=== PATIENT | female | born 1990 | race African-American/Black ===

== ENCOUNTER 2016-11-19 20:19 | Emergency (ER) | payer MEDICAID, OTHER ==
[~2016-11-19] VITALS: Ht 154.9 cm; Wt 59.0 kg
[~2016-11-19 20:19] MED LIST: ALBUTEROL SULF8.5 GM INH; BENADRYL25 M3 PO; IBUPROFEN600 M1 PO; IBUPROFEN600 MG ORAL; KENALOG 0.1% LO60 ML APPLIC; LIDOCAINE700 M1 TP; MECLIZINE HCL25 MG ORAL; NEURONTIN600 MG ORAL; NKM; NORCO 10-325 T1 EACH ORAL; PROAIR HFA8.5 GM INH; PROMETHAZINE HC25 M1 ORAL; ROBAXIN500 MG PO
[2016-11-19 20:40] VITALS: BP 97/56
[2016-11-19] MEDS ORDERED: ZITHROMAX250 MG ORAL (20:41)
[2016-11-19] MEDS ORDERED: PROMETHAZINE-D118 ML ORAL (20:41)
[2016-11-19 20:50] VITALS: BP 97/56
--- NOTE | 2016-11-19 21:09 | Emergency Room Report ---
History of Present Illness General Chief Complaint: Sore Throat Source: Patient Present Illness HPI The patient is a 26-year-old female presenting with sore throat and dry cough for the past 3 days. The patient denies any sick contacts recent travel. Pain described as a 7/10 dull ache to the throat and is worse with swallowing. Pt denies radiating pain. The patient has not used any medications. Patient denies any other symptoms including N, V, F, chills, rash Allergies: Coded Allergies: PENICILLINS (Verified Allergy, Intermediate, 09/28/12) AMOXICILLIN (Verified Allergy, Unknown, 06/25/11) Patient History Past Medical History: see triage record Pertinent Family History: none Last Menstrual Period: 10/07/16 Now: Yes - 7 weeks : 5 Para: 3 Reviewed Nursing Documentation: PMH: Agreed, PSxH: Agreed Nursing Documentation-PMH Past Medical History: No History, Except For Hx Cardiac Problems: No Hx Hypertension: No Hx Pacemaker: No Hx Asthma: Yes Hx Diabetes: No Hx Cancer: No Hx Gastrointestinal Problems: Yes Hx Dialysis: No Hx Neurological Problems: No Hx Cerebrovascular Accident: No Hx Seizures: No Review of Systems All Other Systems: negative except mentioned in HPI Physical Exam Vital Signs Date Time Temp Pulse Resp B/P Pulse Ox O2 Delivery O2 Flow Rate FiO2 11/19/16 20:24 99.7 88 16 97/56 98 Room Air Sp02 EP Interpretation: reviewed, normal General Appearance: no apparent distress, alert, GCS 15, non-toxic Head: normocephalic, atraumatic Eyes: bilateral eye PERRL, bilateral eye normal inspection ENT: hearing grossly normal, no angioedema, normal voice, uvula midline, tonsillar swelling, pharyngeal erythema Neck: full range of motion, supple/symm/no masses Respiratory: chest non-tender, lungs clear, normal breath sounds, no wheezing, speaking full sentences Cardiovascular #1: regular rate, rhythm, no edema Neurologic: alert, oriented x3, responsive, motor strength/tone normal, sensory intact, speech normal Psychiatric: judgement/insight normal, memory normal, mood/affect normal, no suicidal/homicidal ideation Skin: normal color, no rash, warm/dry, well hydrated Lymphatic: adenopathy - cervical Medical Decision Making PA Attestation Dr. Meek is my supervising physician. Patient management was discussed with my supervising physician Diagnostic Impression: Primary Impression: Pharyngitis, acute ER Course The patient is a 26-year-old female presenting with sore throat and dry cough for the past 3 days Differential diagnosis include but not limited to pharyngitis, sinusitis, AOM, bronchitis, PNA Physical exam: Vitals within normal limits. Afebrile. No apparent distress HEENT exam: There is bilateral tonsillar edema, erythema. Uvula midline. Moist mucous membranes. There is bilateral cervical lymphadenopathy. Lungs are clear to auscultation bilaterally Skin is warm and dry. No rash The patient will be discharged home with a prescription for azithromycin and is given ER precautions. Patient will followup with primary care Last Vital Signs Date Time Temp Pulse Resp B/P Pulse Ox O2 Delivery O2 Flow Rate FiO2 11/19/16 20:50 99.7 16 97/56 98 Room Air 11/19/16 20:24 88 Status: improved Disposition: HOME, SELF-CARE Condition: Improved Scripts D-Methorphan Hb/Prometh Hcl* (PROMETHAZINE-DM SYRUP*) 118 Ml Syrup 5 ML ORAL Q6H Y for For Cough, #118 ML 0 Refills Prov: NANCY GILBERT 11/19/16 Azithromycin* (ZITHROMAX*) 250 Mg Tablet 250 MG ORAL DAILY, #6 TAB 0 Refills Take two tables once daily for 1 day, then one tablet once daily for 4 days. Prov: NANCY GILBERT 11/19/16 Referrals: [employer],REFERRIN (PCP) Patient Instructions: Sore Throat Additional Instructions: I discussed my findings with the patient. All questions and concerns have been answered. Treatment and medication compliance have been addressed. I advised the patient that they need to follow up with PMD in 3-5 days. Return to ED if pain remains or worsens, cough worsens or remains, you notice blood in your sputum, you notice wheezing, you experience a fever, or if needed for any reason. Patient verbalized understanding of discharge instructions. NANCY GILBERT Nov 19, 2016 21:09
== END 2016-11-19 20:50 | disposition home or self-care (01) ==
LOC: EMR 20:39
DX: J02.9 Acute pharyngitis, unspecified (principal); J45.909 Unspecified asthma, uncomplicated; Z88.0 Allergy status to penicillin
CPT/HCPCS: 99284

== ENCOUNTER 2017-09-18 12:26 | Emergency (ER) | payer MEDICAID, OTHER ==
[~2017-09-18] VITALS: Ht 157.5 cm; Wt 63.5 kg
[~2017-09-18 12:26] MED LIST changes: +PROMETHAZINE-D118 ML ORAL; +ZITHROMAX250 MG ORAL
[2017-09-18] MEDS ORDERED: ALBUTEROL SULF8.5 GM INH (12:45)
[2017-09-18 13:04] VITALS: BP 112/65
[2017-09-18] MEDS ORDERED: AZITHROMYCIN250 MG ORAL (13:04)
--- NOTE | 2017-09-18 13:21 | Emergency Room Report ---
History of Present Illness General Chief Complaint: Sore Throat Source: Patient Present Illness HPI Patient presents with a 2-month-old child to be seen for sore throat Patient reports that 2 days ago she started feeling sore throat Denies any chest pain Denies any vomiting Denies any obvious fever or rash Patient reports that she saw a small tinge of blood with one of her coughing episode Denies any active hemorrhage Patient also complained of some mild left upper quadrant discomfort which is intermittent and was not present currently Patient reports that she has a history of gallstones Allergies: Coded Allergies: PENICILLINS (Verified Allergy, Intermediate, 09/28/12) AMOXICILLIN (Verified Allergy, Unknown, 06/25/11) Patient History Past Medical History: see triage record Pertinent Family History: none Last Menstrual Period: 09/07/17 Reviewed Nursing Documentation: PMH: Agreed, PSxH: Agreed Nursing Documentation-PMH Hx Cardiac Problems: No Hx Hypertension: No Hx Pacemaker: No Hx Asthma: Yes Hx Diabetes: No Hx Cancer: No Hx Gastrointestinal Problems: Yes Hx Dialysis: No Hx Neurological Problems: No Hx Cerebrovascular Accident: No Hx Seizures: No Review of Systems All Other Systems: negative except mentioned in HPI Physical Exam Vital Signs Date Time Temp Pulse Resp B/P (MAP) Pulse Ox O2 Delivery O2 Flow Rate FiO2 09/18/17 12:42 98.8 95 16 109/60 99 Room Air Sp02 EP Interpretation: reviewed, normal General Appearance: well appearing, no apparent distress Head: normocephalic, atraumatic Eyes: bilateral eye PERRL, bilateral eye EOMI ENT: hearing grossly normal, TMs + canals normal, uvula midline, pharyngeal erythema Neck: full range of motion, supple, no meningismus, no bony tend Respiratory: lungs clear, normal breath sounds, no rhonchi, no respiratory distress, no retraction, no accessory muscle use Cardiovascular #1: normal peripheral pulses, regular rate, rhythm, no edema, no gallop, no JVD, no murmur Gastrointestinal: normal bowel sounds, non tender, soft, no mass, no organomegaly, non-distended, no guarding, no hernia, no pulsatile mass, no rebound Genitourinary: no CVA tenderness Musculoskeletal: normal inspection Neurologic: oriented x3, responsive, operating room manager III-XII nml as tested, motor strength/ tone normal, sensory intact Psychiatric: mood/affect normal Skin: normal color, no rash, warm/dry, palpation normal Lymphatic: normal inspection, no adenopathy Medical Decision Making Diagnostic Impression: Primary Impression: pharyngitis ER Course Patient does not appear septic or toxic has findings in line with likely pharyngitis No signs of any active hemorrhage abdomen is soft Further testing was not performed in the emergency room Patient will have close outpatient followup Last Vital Signs Date Time Temp Pulse Resp B/P (MAP) Pulse Ox O2 Delivery O2 Flow Rate FiO2 09/18/17 13:04 98.8 68 19 112/65 100 Room Air Status: unchanged Disposition: HOME, SELF-CARE Condition: Stable Scripts Azithromycin* (ZITHROMAX*) 250 Mg Tablet 250 MG ORAL DAILY, #6 TAB 0 Refills Take two tablets by mouth today, then take one tablet by mouth daily for four days Prov: ALEXEI SHANNON D.O. 09/18/17 Patient Instructions: Pharyngitis, [id number] Additional Instructions: Patient is provided with the discharge instructions notified to follow up with primary doctor in the next 2-3 days otherwise return to the er with any worsening symptoms. Please note that this report is being documented using [employer] technology. This can lead to erroneous entry secondary to incorrect interpretation by the dictating instrument. ALEXEI SHANNON D.O. Sep 18, 2017 13:21
== END 2017-09-18 13:04 | disposition home or self-care (01) ==
LOC: EMR 12:55
DX: J02.9 Acute pharyngitis, unspecified (principal); Z88.0 Allergy status to penicillin
CPT/HCPCS: 99283

== ENCOUNTER 2018-03-17 13:18 | Emergency (ER) | payer MEDICAID ==
[~2018-03-17] VITALS: Ht 157.5 cm; Wt 65.8 kg
[~2018-03-17 13:18] MED LIST changes: +AZITHROMYCIN250 MG ORAL
[2018-03-17] MEDS ORDERED: CLARITIN-D 121 EAC1 ORAL (13:42)
[2018-03-17 14:13] LABS: APPEARANCE,URINE CLOUDY; BILIRUBIN, URINE NEGATIVE (NEGATIVE); COLOR,URINE PALE YELLOW; GLUCOSE, URINE (UA) NEGATIVE (NEGATIVE); KETONES,URINE NEGATIVE (NEGATIVE); LEUKOCYTE ESTERASE ,URINE 1+ (NEGATIVE); NITRITE,URINE NEGATIVE (NEGATIVE); PH,URINE 6.5 (4.5-8.0); PROTEIN,URINE NEGATIVE (NEGATIVE); UROBILINOGEN,URINE NORMAL MG/DL (0.0-1.0)
--- NOTE | 2018-03-17 14:16 | Emergency Room Report ---
History of Present Illness General Chief Complaint: General Complaint Source: Patient Present Illness HPI Patient is a 27-year-old female presented after increased nasal congestion as well as sore throat. The patient had multiple sick contacts at home. Patient denies any fever. She reports having generalized body aches as well as some increased nasal drainage. She denies any fever. She had not been having any productive cough. Allergies: Coded Allergies: PENICILLINS (Verified Allergy, Intermediate, 09/28/12) AMOXICILLIN (Verified Allergy, Unknown, 06/25/11) Patient History Last Menstrual Period: 03/17/18 Now: No : 5 Para: 45 Reviewed Nursing Documentation: PMH: Agreed; PSxH: Agreed Nursing Documentation-PMH Hx Cardiac Problems: No Hx Hypertension: No Hx Pacemaker: No Hx Asthma: Yes Hx Diabetes: No Hx Cancer: No Hx Gastrointestinal Problems: Yes - Gallstones Hx Dialysis: No Hx Neurological Problems: No Hx Cerebrovascular Accident: No Hx Seizures: No Review of Systems All Other Systems: negative except mentioned in HPI Physical Exam Vital Signs Date Time Temp Pulse Resp B/P (MAP) Pulse Ox O2 Delivery O2 Flow Rate FiO2 03/17/18 13:26 98.3 73 16 110/70 98 Room Air 98.2 Sp02 EP Interpretation: reviewed, normal General Appearance: normal inspection, well appearing, no apparent distress, alert Head: atraumatic ENT: normal ENT inspection, hearing grossly normal, normal voice Neck: normal inspection, full range of motion, supple, no bony tend Respiratory: normal inspection, lungs clear, normal breath sounds, no respiratory distress, no retraction, no wheezing Cardiovascular #1: regular rate, rhythm, no edema Gastrointestinal: normal inspection, normal bowel sounds, non tender, soft, no guarding, no hernia Genitourinary: no CVA tenderness Musculoskeletal: normal inspection, back normal, normal range of motion Neurologic: normal inspection, alert, oriented x3, responsive, shipping weigher III-XII nml as tested, speech normal Psychiatric: normal inspection, judgement/insight normal, mood/affect normal Skin: normal inspection, no rash Medical Decision Making Diagnostic Impression: Primary Impression: Upper respiratory infection ER Course Patient is a 27-year-old female who presented for increased sore throat. Differential diagnosis included but was not limited to meningitis, exudative tonsillitis, retropharyngeal abscess, epiglottitis, strep pharyngitis. Patient has a benign exam and does not appear to require any further imaging or laboratory testing at this time. The patient presented for respiratory infection. She was given prescription for medications for symptomatic treatment.The patient is advised to follow up with primary care doctor in 1-2 days. Patient is advised to return if any worsening condition or if any changes in status that are concerning. This report is dictated with [employer] cabinet and trim installer software which may occasionally lead to discrepancies related to use of this software. Labs Test 03/17/18 13:55 Last Vital Signs Date Time Temp Pulse Resp B/P (MAP) Pulse Ox O2 Delivery O2 Flow Rate FiO2 03/17/18 13:26 98.3 73 16 110/70 98 Room Air 98.2 Status: improved Disposition: HOME, SELF-CARE Condition: Stable Scripts Loratadine/Pseudoephedrine (CLARITIN-D 12 HOUR TABLET) 1 Each Tab.er.12h 1 TAB ORAL EVERY 12 HOURS, #30 TAB Prov: Sadi Rudd MD 03/17/18 Referrals: [facility],REFERRING (PCP) Patient Instructions: Upper Respiratory Infection, Adult Sadi Rudd MD Mar 17, 2018 14:16
[2018-03-17 15:21] VITALS: BP 110/70
[2018-03-17 15:25] VITALS: BP 110/70
== END 2018-03-17 14:20 | disposition home or self-care (01) ==
LOC: EMR 13:55
DX: J06.9 Acute upper respiratory infection, unspecified (principal); J45.909 Unspecified asthma, uncomplicated; Z88.0 Allergy status to penicillin
CPT/HCPCS: 81003; 81025; 99283

== ENCOUNTER 2018-09-17 15:21 | Emergency (ER) | payer MEDICAID ==
[~2018-09-17] VITALS: Ht 157.5 cm; Wt 63.5 kg
[~2018-09-17 15:21] MED LIST changes: +CLARITIN-D 121 EAC1 ORAL
[2018-09-17 15:25] VITALS: BP 120/70
[2018-09-17] MEDS ORDERED: Acetaminophen 500mg (ES) tab ORAL ONE (15:45)
--- NOTE | 2018-09-17 15:45 | Emergency Room Report ---
History of Present Illness General Chief Complaint: Sore Throat Source: Patient Present Illness HPI 28-year-old female patient presents the ER complaining of right shoulder pain and sore throat for the past few days. Patient reports pain with swallowing. Denies cough. Denies fever. Denies taking medications for relief of symptoms. Also reports right shoulder pain, denies acute injury or trauma. 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 Reports pain with movement. States not taking medication for relief of symptoms. Denies fever, chest pain, shortness of breath. Allergies: Coded Allergies: PENICILLINS (Verified Allergy, Intermediate, 09/28/12) AMOXICILLIN (Verified Allergy, Unknown, 06/25/11) Patient History Past Medical History: see triage record Last Menstrual Period: 08/10/2018 Reviewed Nursing Documentation: PMH: Agreed; PSxH: Agreed Nursing Documentation-PMH Past Medical History: No History, Except For Hx Cardiac Problems: No Hx Hypertension: No Hx Pacemaker: No Hx Asthma: Yes Hx Diabetes: No Hx Cancer: No Hx Gastrointestinal Problems: Yes - Gallstones Hx Dialysis: No Hx Neurological Problems: No Hx Cerebrovascular Accident: No Hx Seizures: No Review of Systems All Other Systems: negative except mentioned in HPI Physical Exam Vital Signs Date Time Temp Pulse Resp B/P (MAP) Pulse Ox O2 Delivery O2 Flow Rate FiO2 09/17/18 15:25 99.1 74 16 120/70 97 Room Air Sp02 EP Interpretation: reviewed, normal General Appearance: well appearing, no apparent distress, alert, GCS 15, non- toxic Head: normocephalic, atraumatic Eyes: bilateral eye normal inspection, bilateral eye PERRL ENT: hearing grossly normal, normal pharynx, no angioedema, normal voice, TMs + canals normal, uvula midline, moist mucus membranes, pharyngeal erythema, tonsillar exudate, other - Uvula midline Neck: full range of motion Respiratory: lungs clear, normal breath sounds, no rhonchi, no respiratory distress, no accessory muscle use, no wheezing, speaking full sentences Cardiovascular #1: regular rate, rhythm, no edema Cardiovascular #2: 2+ radial (R), 2+ radial (L) Gastrointestinal: non tender, soft, no mass, non-distended, no guarding, no rebound Musculoskeletal: back normal, digits/nails normal, gait/station normal, normal range of motion, non-tender, other - NVI, cap refill less than 2 seconds, negative sulcus sign, positive Neer impingement, negative Donnelly, negative empty can Neurologic: alert, oriented x3, responsive, motor strength/tone normal, sensory intact Psychiatric: mood/affect normal Skin: no rash Lymphatic: adenopathy - Cervical Medical Decision Making PA Attestation Dr. Rudd is my supervising Physician whom patient management has been discussed with. Diagnostic Impression: Primary Impression: Tonsillitis Additional Impression: Shoulder impingement ER Course Pt. presents to the ED c/o sore throat and shoulder pain. Ddx considered but are not limited to fracture, sprain, strain, contusion, dislocation, pharyngitis, laryngitis, URI, peritonsillar abscess, tonsillitis. Low suspicion for peritonsillar abscess, no neck stiffness, no hot potato voice , no stridor. No erythema, no warmth to touch, no fever, nontoxic appearing, low suspicion for septic joint. Soft compartments, no pulselessness, no pallor, no paresthesias, low suspicion for compartment syndrome at this time. Vital signs: are WNL, pt. is afebrile Ordered X-ray and pain medication. ER COURSE Provided with pain medication. Physical exam shows tonsillar exudates with lymphadenopathy, no history of cough , likely tonsillitis, will provide patient with antibiotics at discharge. Will provide patient with azithromycin due to allergy of penicillins. Take Tylenol for pain symptoms. Patient reports feeling better following administration of medication Salt water gargles An X-ray of the right shoulder shows no acute fracture or dislocation per the preliminary reading. Likely shoulder impingement, advised patient to follow-up with primary care provider and get referral for MRI imaging and to Ortho/PT. Patient instructed on RICE method: rest, ice, compression, elevation. Patient instructed on rest, ice and heat. Patient instructed to be WBAT Contact information for orthopedic urgent care provided, follow-up with urgent care if unable to followup with primary care provider and get referral to security incident response specialist. Followup with primary care provider. Discuss referral to ortho/pain management/ PT as needed. Discuss further imaging with MRI/CT as needed. DISCHARGE: At this time pt. is stable for d/c to home. Patient is resting comfortably, in no acute distress, nontoxic appearing, talking without difficulty. Will provide printed patient care instructions, and any necessary prescriptions. Patient instructed to follow with primary care provider in 3 - 5 days and to request further follow-up as needed. Care plan and follow up instructions have been discussed with the patient prior to discharge. Take medications as directed. Patient questions asked and answered. Patient reports understanding and agreement to treatment plan. ER precautions given, patient instructed to return to ER immediately for any new or worsening of symptoms. - Please note that this Emergency Department Report was dictated using [employer] secretary/transcriptionist technology software, occasionally this can lead to erroneous entry secondary to interpretation by the dictation equipment. Other X-Ray Diagnostic Results Other X-Ray Diagnostic Results : X-Ray ordered: Right shoulder # of Views/Limited Vs Complete: 3 View Indication: Pain EP Interpretation: Yes PA Xray: Interpretation reviewed, by supervising MD, and agrees with findings. Interpretation: no dislocation, no soft tissue swelling, no fractures Impression: No acute disease BETTYE Scribe Text Lev Guadalupe PA-C Last Vital Signs Date Time Temp Pulse Resp B/P (MAP) Pulse Ox O2 Delivery O2 Flow Rate FiO2 09/17/18 15:25 99.1 74 16 120/70 97 Room Air Status: improved Disposition: HOME, SELF-CARE Condition: Stable Scripts Acetaminophen* (TYLENOL EXTRA STRENGTH*) 500 Mg Tablet 500 MG ORAL Q8H PRN for Prn Headache/Temp > 101, #30 TAB 0 Refills Prov: Josh Guadalupe.AMarga 09/17/18 Methocarbamol* (ROBAXIN*) 500 Mg Tablet 500 MG PO TID, #21 TAB 0 Refills Prov: Josh Guadalupe 09/17/18 Lidocaine (Lidocaine) 1 Each Adh..patch 5 % TP DAILY for 7 Days, #7 PATCH Prov: Josh Guadalupe.AMarga 09/17/18 Azithromycin* (ZITHROMAX*) 250 Mg Tablet 250 MG ORAL DAILY, #6 TAB 0 Refills Take two tables once daily for 1 day, then one tablet once daily for 4 days. Prov: Josh Guadalupe.Sommer 09/17/18 Patient Instructions: Shoulder Pain, Tonsillitis Additional Instructions: Followup with primary care provider in 3 -5 days. Salt water gargles Take Tylenol for pain and fever symptoms Drink plenty of water. Patient instructed to follow up with primary care provider and discuss further referral to orthopedics/physical therapy/pain management as needed. If unable to followup with PCP, followup with orthopedic urgent care in 5-7 days , call to schedule appointment. Patient instructed on RICE method: rest, ice, compression, elevation. Patient instructed to WBAT. Take medications as directed. Patient questions asked and answered. ER precautions given, patient instructed to return to ER immediately for any new or worsening of symptoms. [facility] [address] [facility], [address] [email or web address] Josh Guadalupe Sep 17, 2018 15:45
[2018-09-17] MEDS ORDERED: TYLENOL EXTRA500 MG ORAL (15:47)
[2018-09-17] MEDS ORDERED: ROBAXIN500 MG PO (15:47)
[2018-09-17] MEDS ORDERED: LIDOCAINE700 M1 TP (15:47)
[2018-09-17] MEDS ORDERED: ZITHROMAX250 MG ORAL (15:47)
[2018-09-17 16:50] VITALS: BP 118/72
--- NOTE | 2018-09-18 15:43 | Diagnostic Imaging Report ---
Indication: Right shoulder pain Technique: 3 views of the right shoulder Comparison: none Findings: No acute fractures. No dislocations. The joint spaces are preserved Impression: Negative
== END 2018-09-17 16:45 | disposition home or self-care (01) ==
LOC: EMR 16:00
DX: J03.90 Acute tonsillitis, unspecified (principal); M75.41 Impingement syndrome of right shoulder; J45.909 Unspecified asthma, uncomplicated; Z88.0 Allergy status to penicillin
CPT/HCPCS: 99283

== ENCOUNTER 2019-02-23 15:56 | Emergency (ER) | payer SELFPAY ==
[~2019-02-23] VITALS: Ht 157.5 cm; Wt 64.0 kg
[~2019-02-23 15:56] MED LIST changes: +TYLENOL EXTRA500 MG ORAL
--- NOTE | 2019-02-23 16:04 | NUR ---
ED Nurse Note: pt walked in c/o sorethroat, nasal congestion, pain on respiration, and watery eyes since yesterday. no sx resp distress noted, LS=clear, airway intact, will cont monitor. pt walked in c/o right big toe pain, pt states she went to nail salon and the lady cut it too short and there has been yellow pus coming out with swelling and redness. noted mild redness and tenderness but no drainage at this time, will cont monitor.
[2019-02-23 16:09] VITALS: BP 115/67
[2019-02-23] MEDS ORDERED: CLARITIN-D 241 EACH PO (16:26)
--- NOTE | 2019-02-23 16:28 | Emergency Room Report ---
History of Present Illness General Chief Complaint: Flu Like Symptoms Source: Patient Present Illness HPI Patient is a 28-year-old female presented after increased nasal congestion as well as watery eyes and sore throat. Patient had gradual onset of symptoms in the past few days. She denies any fever. She reports having some pain to her toe as well after her recent pedicure. She denies any fever. She had not been having any cough. She denies any difficulty with breathing.Patient reported he had been taking Benadryl without any improvement. Allergies: Coded Allergies: PENICILLINS (Verified Allergy, Intermediate, 02/23/19) AMOXICILLIN (Verified Allergy, Unknown, 02/23/19) Patient History Past Medical History: see triage record Last Menstrual Period: 02/08/19 Now: No Reviewed Nursing Documentation: PMH: Agreed; PSxH: Agreed Nursing Documentation-PMH Past Medical History: No History, Except For Hx Cardiac Problems: No Hx Hypertension: No Hx Pacemaker: No Hx Asthma: Yes Hx Diabetes: No Hx Cancer: No Hx Gastrointestinal Problems: Yes - Gallstones Hx Dialysis: No Hx Neurological Problems: No Hx Cerebrovascular Accident: No Hx Seizures: No Review of Systems All Other Systems: negative except mentioned in HPI Physical Exam Vital Signs Date Time Temp Pulse Resp B/P (MAP) Pulse Ox O2 Delivery O2 Flow Rate FiO2 02/23/19 15:58 98.4 92 18 115/67 (83) 98 Room Air General Appearance: well appearing, no apparent distress, alert, GCS 15 Head: normocephalic, atraumatic ENT: hearing grossly normal, normal voice, other - nasal congestion Neck: full range of motion, supple Respiratory: no respiratory distress, speaking full sentences Cardiovascular #1: normal inspection, no edema Gastrointestinal: normal inspection Musculoskeletal: other - no soft tissue swelling to toe Neurologic: normal gait Psychiatric: mood/affect normal Skin: no rash Medical Decision Making Diagnostic Impression: Primary Impression: Allergic rhinitis ER Course . Patient presented for increased nasal congestion and watery eyes. Differential diagnosis include was not limited to allergic rhinitis, viral respiratory infection, allergic reaction among others. Patient has a benign exam and does not appear to require any further imaging or laboratory testing at this time. Patient did have a benign exam and does not appear to have any evidence of acute respiratory distress. She is given medications for symptomatic treatment. Patient advised to recheck with her primary care physician in the next few days. Patient's toe does not appear to be significantly infected and she is advised on care. Patient was to take ibuprofen for pain as needed. Last Vital Signs Date Time Temp Pulse Resp B/P (MAP) Pulse Ox O2 Delivery O2 Flow Rate FiO2 02/23/19 16:09 98.4 92 18 115/67 98 Room Air Status: improved Disposition: HOME, SELF-CARE Condition: Stable Scripts Loratadine/Pseudoephedrine (CLARITIN-D 24 HOUR TABLET) 1 Each Tab.er.24h 1 TAB PO DAILY, #20 TAB Prov: Sadi Rudd MD 02/23/19 Patient Instructions: Allergies, [id number] Additional Instructions: Follow up with your primary care physician. Sadi Rudd MD February 23, 2019 16:28
[2019-02-23] MEDS ORDERED: Oxymetazoline 0.05% Na Spray 30ml NASAL ONE (16:30)
[2019-02-23 16:34] VITALS: BP 115/67
--- NOTE | 2019-02-23 16:34 | NUR ---
ER DISCHARGE NOTE: Patient is cleared to be discharged per ERMD, pt is aox4, on room air, with stable vital signs. pt was given dc and prescription instructions, pt was able to verbalize understanding, pt id band removed without complications. pt is able to ambulate with steady gait. pt took all belongings.
== END 2019-02-23 16:34 | disposition home or self-care (01) ==
LOC: EMR 16:20
DX: J30.9 Allergic rhinitis, unspecified (principal); J45.909 Unspecified asthma, uncomplicated; Z88.0 Allergy status to penicillin
CPT/HCPCS: 99282

== ENCOUNTER 2019-03-24 20:24 | Emergency (ER) | payer MEDICAID, OTHER ==
[~2019-03-24] VITALS: Ht 157.5 cm; Wt 63.5 kg
[~2019-03-24 20:24] MED LIST changes: +CLARITIN-D 241 EACH PO
--- NOTE | 2019-03-24 20:45 | NUR ---
ED Nurse Note: PATIENT WALKED IN TO ER FROM HOME WITH C/O LEFT SIDE CHEST AREA PAIN ONLY WHEN BREATHING IN AT 8/10 SINCE AM, PT HAS HAD COUGH FOR PAST WEEK WITH PRODUCTION. AAO X4, VSS AT THIS TIME, SKIN IS DRY, INTACT, WARM TO TOUCH. PATIENT PRESENTED WITH SLIGHTLY ELEVATED T 99.8, PT'S O2 SAT 98 % ON RA, NONLABORED BREATHING NOTICED.
[2019-03-24 20:54] VITALS: BP 110/66
[2019-03-24] MEDS ORDERED: Albuterol/Ipratropium 3ml neb HHN ONE (21:00)
--- NOTE | 2019-03-24 21:12 | Emergency Room Report ---
History of Present Illness General Chief Complaint: Chest Pain Source: Patient Present Illness HPI Patient is a 28-year-old female presented after increased cough and chest discomfort. Patient prior history of asthma. She reports having similar symptoms in the past. She states that she has episodes in the past during the summer when she has more concerns with her asthma. She did not have any fever. She reports having some increased congestion as well as increased cough Allergies: Coded Allergies: PENICILLINS (Verified Allergy, Intermediate, 03/24/19) AMOXICILLIN (Verified Allergy, Unknown, 02/23/19) Patient History Past Medical History: asthma Last Menstrual Period: 03-08-2019 Now: No Reviewed Nursing Documentation: PMH: Agreed; PSxH: Agreed Nursing Documentation-PMH Hx Cardiac Problems: No Hx Hypertension: No Hx Pacemaker: No Hx Asthma: Yes Hx Diabetes: No Hx Cancer: No Hx Gastrointestinal Problems: Yes - Gallstones Hx Dialysis: No Hx Neurological Problems: No Hx Cerebrovascular Accident: No Hx Seizures: No Review of Systems All Other Systems: negative except mentioned in HPI Physical Exam Vital Signs Date Time Temp Pulse Resp B/P (MAP) Pulse Ox O2 Delivery O2 Flow Rate FiO2 03/24/19 20:32 99.3 110 18 110/66 (81) 98 Room Air General Appearance: well appearing, no apparent distress, alert, GCS 15 Head: normocephalic, atraumatic ENT: hearing grossly normal, normal voice Neck: full range of motion, supple Respiratory: no respiratory distress, speaking full sentences Cardiovascular #1: normal inspection, regular rate, rhythm, no edema Gastrointestinal: normal inspection, non tender, soft Musculoskeletal: normal inspection Neurologic: normal inspection, alert, oriented x3, responsive, incendiaries supervisor III-XII nml as tested, normal gait Psychiatric: mood/affect normal Skin: no rash Medical Decision Making Diagnostic Impression: Primary Impression: Asthma in adult ER Course Patient presented for left-sided chest discomfort. Differential diagnosis include is not limited to pneumonia, bronchitis, asthma exacerbation among others.Patient was given breathing treatment. She was noted to have chest x- ray read by radiology which showed no evidence of acute infiltrate or cardiomegaly. Patient was given prescriptions for medications for symptomatic treatment she was advised to follow-up with her primary care physician for recheck. Patient advised to return if any worsening of condition or other concerns. Last Vital Signs Date Time Temp Pulse Resp B/P (MAP) Pulse Ox O2 Delivery O2 Flow Rate FiO2 03/24/19 20:54 110 18 Room Air 03/24/19 20:54 99.7 110/66 98 Status: improved Disposition: HOME, SELF-CARE Condition: Stable Scripts Loratadine (CLARITIN) 10 Mg Capsule 10 MG ORAL DAILY, #30 CAP Prov: Sadi Rudd MD 03/24/19 Albuterol Sulfate* (ALBUTEROL SULFATE MDI*) 8.5 Gm Hfa.aer.ad 2 PUFF INH Q4H PRN for cough/wheezing, #1 EA 0 Refills Prov: Sadi Rudd MD 03/24/19 Referrals: NOT CHOSEN IPA/,REFERRING (PCP) Sadi Rudd MD Mar 24, 2019 21:12
[2019-03-24] MEDS ORDERED: CLARITIN10 M2 ORAL (21:13)
[2019-03-24] MEDS ORDERED: ALBUTEROL SULF8.5 GM INH (21:13)
[2019-03-24 21:32] VITALS: BP 110/66
--- NOTE | 2019-03-24 21:32 | NUR ---
ED Nurse Note: Pt cleared by health care Provider for discharge. DC instructions/prescription was given and explained to pt and verbalized understanding of teachings. All medical deviecs such as ID band removed. Pt is AAO x4, ambulatory and left with all personal belongings.
--- NOTE | 2019-03-24 21:39 | Diagnostic Imaging Report ---
EXAM: XR Chest, 1 View CLINICAL HISTORY: Chest pain TECHNIQUE: Frontal view of the chest. COMPARISON: CT 08/13/2016, CXR 08/15/2016 FINDINGS: Lungs: Unremarkable. No consolidation. Pleural space: Unremarkable. No pneumothorax. Heart: Unremarkable. No cardiomegaly. Mediastinum: Unremarkable. Bones/joints: No acute osseous abnormality. IMPRESSION: No acute cardiopulmonary process.
== END 2019-03-24 21:33 | disposition home or self-care (01) ==
LOC: EMR 20:46
DX: J45.909 Unspecified asthma, uncomplicated (principal); Z88.0 Allergy status to penicillin
CPT/HCPCS: 71045; 81025; 94640; 94664; 99284; J7620

== ENCOUNTER 2019-04-02 13:25 | Emergency (ER) | payer OTHER ==
[~2019-04-02] VITALS: Ht 157.5 cm; Wt 63.5 kg
[~2019-04-02 13:25] MED LIST changes: +CLARITIN10 M2 ORAL
--- NOTE | 2019-04-02 13:43 | Emergency Room Report ---
History of Present Illness General Chief Complaint: Asthma Source: Patient Present Illness HPI 28-year-old female with history of asthma here complaining of exacerbation of her asthma as well as cough with phlegm. Patient was previously here on March 24 of this year was diagnosed with asthma exacerbation and given a prescription for albuterol inhaler patient later went to [facility] and was told to follow-up with a primary care physician however patient does not have established primary care. Patient reports a worsening cough with green phlegm production and sore throat at this time that has been lasting for 1 week. Denies chest pain, shortness of breath, palpitation, abdominal pain nausea vomiting. Has not taken any urqa-ofj-sthxzdi cough syrups. Patient also complains of urinary frequency however denies dysuria, suprapubic pain, hematuria, nausea vomiting. Allergies: Coded Allergies: PENICILLINS (Verified Allergy, Intermediate, 03/24/19) AMOXICILLIN (Verified Allergy, Unknown, 02/23/19) Patient History Past Medical History: see triage record Past Surgical History: unable to obtain Pertinent Family History: none Now: No Immunizations: UTD Reviewed Nursing Documentation: PMH: Agreed; PSxH: Agreed Nursing Documentation-PMH Past Medical History: No History, Except For Hx Cardiac Problems: No Hx Hypertension: No Hx Pacemaker: No Hx Asthma: Yes Hx Diabetes: No Hx Cancer: No Hx Gastrointestinal Problems: Yes - Gallstones Hx Dialysis: No Hx Neurological Problems: No Hx Cerebrovascular Accident: No Hx Seizures: No Review of Systems All Other Systems: negative except mentioned in HPI Physical Exam Vital Signs Date Time Temp Pulse Resp B/P (MAP) Pulse Ox O2 Delivery O2 Flow Rate FiO2 04/02/19 13:28 98.8 70 17 119/69 (86) 100 Room Air Sp02 EP Interpretation: reviewed, normal General Appearance: normal inspection, well appearing, no apparent distress Head: normocephalic, atraumatic Eyes: bilateral eye normal inspection, bilateral eye PERRL ENT: hearing grossly normal, no angioedema, normal voice, TMs + canals normal, uvula midline, moist mucus membranes, pharyngeal erythema Neck: normal inspection, full range of motion, supple Respiratory: normal inspection, chest non-tender, lungs clear, no wheezing Cardiovascular #1: normal inspection, normal peripheral pulses, regular rate, rhythm, no edema, no murmur Gastrointestinal: normal inspection, soft, no mass Genitourinary: no CVA tenderness Musculoskeletal: normal inspection, back normal, digits/nails normal Neurologic: normal inspection, alert, oriented x3 Psychiatric: normal inspection, judgement/insight normal Skin: no rash, palpation normal Lymphatic: normal inspection, no adenopathy Medical Decision Making PA Attestation All my diagnosis and treatment plans were reviewed ad discussed with my supervising physician Dr. Meek Diagnostic Impression: Primary Impression: Pharyngitis Additional Impression: Asthma ER Course 28-year-old female with history of asthma here complaining of exacerbation of her asthma as well as cough with phlegm. Patient was previously here on March 24 of this year was diagnosed with asthma exacerbation and given a prescription for albuterol inhaler patient later went to [facility] and was told to follow-up with a primary care physician however patient does not have established primary care. Patient reports a worsening cough with green phlegm production and sore throat at this time that has been lasting for 1 week. Denies chest pain, shortness of breath, palpitation, abdominal pain nausea vomiting. Has not taken any womu-duh-rnkvnmv cough syrups. Patient also complains of urinary frequency however denies dysuria, suprapubic pain, hematuria, nausea vomiting. Ddx considered but are not limited to: strep pharyngitis, URI, tonsilitis, peritonsillar absacess, influneza Vital signs: are WNL, pt. is afebrile H&PE are most consistent with: Pharyngitis and asthma exacerbation ORDERS: UA, urine test, Phenergan, azithromycin ED INTERVENTIONS: None required at this time. DISCHARGE: At this time pt. is stable for d/c to home. Will provide printed patient care instructions, and any necessary prescriptions. Care plan and follow up instructions have been discussed with the patient prior to discharge. At this time patient to follow-up with her primary care provider due to worsening of her asthma however no wheezing is noted on physical exam today I advised the patient to continue using her albuterol inhaler for proper follow- up assessment with her primary care regarding her asthma. Last Vital Signs Date Time Temp Pulse Resp B/P (MAP) Pulse Ox O2 Delivery O2 Flow Rate FiO2 04/02/19 13:28 98.8 70 17 119/69 (86) 100 Room Air Disposition: HOME, SELF-CARE Condition: Stable Scripts Promethazine HCl (Promethazine HCl) 6.25 Mg/5 Ml Syrup 5 ML ORAL Q6H PRN for For Cough, #120 ML 0 Refills Prov: Viviane Harding 04/02/19 Azithromycin* (ZITHROMAX*) 250 Mg Tablet 250 MG ORAL DAILY, #6 TAB 0 Refills Take two tables once daily for 1 day, then one tablet once daily for 4 days. Prov: Viviane Harding 04/02/19 Patient Instructions: Asthma, Adult, Pharyngitis, [id number] Additional Instructions: Take medication as directed follow-up with your primary care provider Viviane Harding Apr 02, 2019 13:43
[2019-04-02] MEDS ORDERED: ZITHROMAX250 MG ORAL (13:44)
[2019-04-02] MEDS ORDERED: PROMETHAZI6.25 MG/2 ORAL (13:44)
[2019-04-02 13:50] VITALS: BP 119/69
--- NOTE | 2019-04-02 13:50 | NUR ---
ED Nurse Note: pt walked in due to pain when inhalation, pt stated she has pneumonia and was prescribed abx and was done with the course of medication. pt is not in acute distress. seen by betina hoskins. will continue to monitor
[2019-04-02 14:22] LABS: APPEARANCE,URINE CLEAR; BILIRUBIN, URINE NEGATIVE (NEGATIVE); COLOR,URINE PALE YELLOW; GLUCOSE, URINE (UA) NEGATIVE (NEGATIVE); KETONES,URINE NEGATIVE (NEGATIVE); LEUKOCYTE ESTERASE ,URINE 1+ (NEGATIVE); NITRITE,URINE NEGATIVE (NEGATIVE); PH,URINE 8 (4.5-8.0); PROTEIN,URINE NEGATIVE (NEGATIVE); UROBILINOGEN,URINE NORMAL MG/DL (0.0-1.0)
[2019-04-02 14:35] VITALS: BP 119/69
== END 2019-04-02 14:35 | disposition home or self-care (01) ==
LOC: EMR 13:55
DX: J02.9 Acute pharyngitis, unspecified (principal); J45.909 Unspecified asthma, uncomplicated; Z88.0 Allergy status to penicillin
CPT/HCPCS: 81001; 81025; 99283

== ENCOUNTER 2019-05-12 13:24 | Emergency (ER) | payer OTHER ==
[~2019-05-12] VITALS: Ht 157.5 cm; Wt 65.8 kg
[~2019-05-12 13:24] MED LIST changes: +PROMETHAZI6.25 MG/2 ORAL
--- NOTE | 2019-05-12 14:10 | NUR ---
ED Nurse Note: Patient walked in c/o a productive cough x 3 weeks. Pt denies any pain. Temp 99.0 F in the ER. pt it might be an allergy. pt is seen by betina braswell. will continue to monitor
--- NOTE | 2019-05-12 14:14 | Emergency Room Report ---
History of Present Illness General Chief Complaint: Upper Respiratory Illness Source: Medical Record Present Illness HPI 28-year-old female with history of chronic cough here complaining of worsening cough for the past 3 weeks. Patient was here 3 weeks ago for similar symptoms and also went to [facility] prior to coming here 3 weeks ago. Patient has been given multiple rounds of inhaler and Medrol Dosepak as well as azithromycin. Has not yet seen her primary care provider. Patient sitting comfortably denies any wheezing or chest pain. Denies shortness of breath. Reports that in the morning she started having a lot of green mucus and phlegm coming out. Reports that her cough is not as bad throughout the day. Denies sore throat, fever and chills. Has been using Flonase nasal spray with minimal relief. Denies abdominal pain, nausea vomiting. Denies tobacco smoke and recent travel. Has history of allergies. Allergies: Coded Allergies: PENICILLINS (Verified Allergy, Intermediate, 03/24/19) AMOXICILLIN (Verified Allergy, Unknown, 02/23/19) Patient History Past Medical History: see triage record Past Surgical History: unable to obtain Pertinent Family History: none Last Menstrual Period: 04/30/2019 Now: No : 4 Para: 4 Reviewed Nursing Documentation: PMH: Agreed; PSxH: Agreed Nursing Documentation-PMH Hx Cardiac Problems: No Hx Hypertension: No Hx Pacemaker: No Hx Asthma: Yes Hx Diabetes: No Hx Cancer: No Hx Gastrointestinal Problems: Yes - Gallstones Hx Dialysis: No Hx Neurological Problems: No Hx Cerebrovascular Accident: No Hx Seizures: No Review of Systems All Other Systems: negative except mentioned in HPI Physical Exam Vital Signs Date Time Temp Pulse Resp B/P (MAP) Pulse Ox O2 Delivery O2 Flow Rate FiO2 05/12/19 13:55 99.0 84 15 111/69 (83) 98 Room Air Sp02 EP Interpretation: reviewed, normal General Appearance: no apparent distress, alert, GCS 15, non-toxic Head: normocephalic, atraumatic Eyes: bilateral eye normal inspection, bilateral eye PERRL ENT: hearing grossly normal, normal pharynx, no angioedema, normal voice Neck: full range of motion, supple/symm/no masses Respiratory: chest non-tender, lungs clear, normal breath sounds, speaking full sentences Cardiovascular #1: regular rate, rhythm, no edema Gastrointestinal: normal inspection, soft Genitourinary: no CVA tenderness Neurologic: alert, oriented x3, responsive, motor strength/tone normal, sensory intact, speech normal Psychiatric: judgement/insight normal, memory normal, mood/affect normal, no suicidal/homicidal ideation Skin: no rash Lymphatic: no adenopathy Medical Decision Making PA Attestation All my diagnosis and treatment plans were reviewed ad discussed with my supervising physician Dr. Meek Diagnostic Impression: Primary Impression: Allergic rhinitis Additional Impression: Asthma ER Course 28-year-old female with history of chronic cough here complaining of worsening cough for the past 3 weeks. Patient was here 3 weeks ago for similar symptoms and also went to [facility] prior to coming here 3 weeks ago. Patient has been given multiple rounds of inhaler and Medrol Dosepak as well as azithromycin. Has not yet seen her primary care provider. Patient sitting comfortably denies any wheezing or chest pain. Denies shortness of breath. Reports that in the morning she started having a lot of green mucus and phlegm coming out. Reports that her cough is not as bad throughout the day. Denies sore throat, fever and chills. Has been using Flonase nasal spray with minimal relief. Denies abdominal pain, nausea vomiting. Denies tobacco smoke and recent travel. Has history of allergies. Ddx considered but are not limited to: strep pharyngitis, URI, allergic rhinitis , asthma, bronchitis Vital signs: are WNL, pt. is afebrile H&PE are most consistent with: Asthma and allergic rhinitis ORDERS: Domingo-D, Jamie Lobo ED INTERVENTIONS: None required at this time. DISCHARGE: At this time pt. is stable for d/c to home. Will provide printed patient care instructions, and any necessary prescriptions. Care plan and follow up instructions have been discussed with the patient prior to discharge. I highly advised the patient to follow-up with her primary care provider for referral to spring bender at this time her symptoms are chronic and need further attention. Last Vital Signs Date Time Temp Pulse Resp B/P (MAP) Pulse Ox O2 Delivery O2 Flow Rate FiO2 05/12/19 13:55 99.0 84 15 111/69 (83) 98 Room Air Disposition: HOME, SELF-CARE Condition: Stable Scripts Fexofenadine/Pseudoephedrine (DOMINGO-D 12 HOUR TABLET) 1 Each Tab.er.12h 1 EACH PO BID, #30 TAB Prov: Viviane Harding 05/12/19 Benzonatate* (TESSALON PERLE*) 100 Mg Capsule 100 MG ORAL THREE TIMES A DAY, #21 PERLE Prov: Viviane Harding 05/12/19 Patient Instructions: Allergic Rhinitis, Asthma, Adult, [id number] Additional Instructions: Take medication as directed follow-up with your primary care provider at this point this is a chronic condition as you have been here and to [facility] for the same reason in the past few months multiple occasions. Establish a primary care in order to be sent to an spring bender. Viviane Harding May 12, 2019 14:14
[2019-05-12] MEDS ORDERED: TESSALON PERLE100 MG ORAL (14:16)
[2019-05-12] MEDS ORDERED: ALLEGRA-D 12 H1 EACH PO (14:16)
[2019-05-12 14:17] VITALS: BP 111/69
[2019-05-12 14:23] VITALS: BP 111/69
== END 2019-05-12 14:50 | disposition home or self-care (01) ==
LOC: EMR 14:31
DX: J45.909 Unspecified asthma, uncomplicated (principal); Z88.0 Allergy status to penicillin; Z88.1 Allergy status to other antibiotic agents
CPT/HCPCS: 99282

== ENCOUNTER 2019-09-04 16:39 | Emergency (ER) | payer OTHER ==
[~2019-09-04] VITALS: Ht 157.5 cm; Wt 64.0 kg
[~2019-09-04 16:39] MED LIST changes: +ALLEGRA-D 12 H1 EACH PO; +TESSALON PERLE100 MG ORAL
--- NOTE | 2019-09-04 17:44 | Emergency Room Report ---
History of Present Illness General Chief Complaint: Lower Extremity Injury Present Illness HPI 28-year-old female presents to the emergency department complaining of 4 out of 10 severity persistent left lateral ankle pain x3 months status post twist and fall while at work. Patient reports she was initially evaluated by Worker's Comp. provider who gave her light duty. Patient denies additional trauma or fall she reports she has not been able to rest her ankle. No other aggravating factors at this time. Patient denies paresthesias, loss of gross motor movement /weakness, or ability to bear weight or ambulate. Allergies: Coded Allergies: PENICILLINS (Verified Allergy, Intermediate, 03/24/19) AMOXICILLIN (Verified Allergy, Unknown, 02/23/19) Patient History Past Medical History: see triage record Past Surgical History: none Pertinent Family History: none Last Menstrual Period: 08/20/19 Now: No Reviewed Nursing Documentation: PMH: Agreed; PSxH: Agreed Nursing Documentation-PMH Hx Cardiac Problems: No Hx Hypertension: No Hx Pacemaker: No Hx Asthma: Yes Hx Diabetes: No Hx Cancer: No Hx Gastrointestinal Problems: Yes - Gallstones Hx Dialysis: No Hx Neurological Problems: No Hx Cerebrovascular Accident: No Hx Seizures: No Review of Systems All Other Systems: negative except mentioned in HPI Physical Exam Vital Signs Date Time Temp Pulse Resp B/P (MAP) Pulse Ox O2 Delivery O2 Flow Rate FiO2 09/04/19 16:44 98.2 74 18 109/67 (81) 98 Room Air Sp02 EP Interpretation: reviewed, normal General Appearance: no apparent distress, alert, GCS 15, non-toxic Head: normocephalic, atraumatic Eyes: bilateral eye normal inspection, bilateral eye PERRL ENT: hearing grossly normal, normal voice Neck: full range of motion Respiratory: chest non-tender, lungs clear, normal breath sounds, speaking full sentences Cardiovascular #1: regular rate, rhythm Cardiovascular #2: 2+ dorsalis pedis (R), 2+ dorsalis pedis (L) Musculoskeletal: normal range of motion, gait/station normal, tender - mild ttp to the anteriorlateral aspect of the left ankle. No increased laxity. Pt. able to bear weight, no obviuos deformity, mild swelling. NVI., swelling - mild anteriolateral left ankle swelling, no erythema, no warmth, no bruises. Neurologic: alert, motor strength/tone normal, oriented x3, sensory intact, responsive, speech normal Psychiatric: judgement/insight normal Skin: normal color, normal inspection Medical Decision Making PA Attestation Dr. Macias Is my supervising Physician whom patient management has been discussed with. Diagnostic Impression: Primary Impression: Ankle pain, chronic Qualified Codes: M25.572 - Pain in left ankle and joints of left foot; G89.29 - Other chronic pain Additional Impression: Left ankle sprain Qualified Codes: S93.402A - Sprain of unspecified ligament of left ankle, initial encounter ER Course 28-year-old female presents to the emergency department complaining of 4 out of 10 severity persistent left lateral ankle pain x3 months status post twist and fall while at work. Patient reports she was initially evaluated by Worker's Comp. provider who gave her light duty. Patient denies additional trauma or fall she reports she has not been able to rest her ankle. No other aggravating factors at this time. Patient denies paresthesias, loss of gross motor movement /weakness, or ability to bear weight or ambulate. Ddx considered but are not limited to Fracture, dislocation, contusion, Sprain/ Strain/Spasm, ligamental injury/tear just name a few. Vital signs: are WNL, pt. is afebrile H&PE are most consistent with musculoskeletal injury will perform imaging to r/ o fractures/dislocations. ORDERS: - X-ray Left Ankle 3 views - negative for fx, Dislocation, or significant soft tissue injury, per preliminary read in ED, and signed by BETTYE Alford , my supervising physician has reviewed, and agrees with my interpretation. ED INTERVENTIONS: -Left ankle air splint applied by permit technician. Pt. remains neurovascularly intact. -Patient is provided with crutches and instructed on their use -I do not identify an emergent condition at this time. With current presentation , pt. is stable for close outpatient follow up and conservative treatment. D/ w pt. to return promptly to ED with worsening or new symptoms.- Pt. verbalizes' understanding and agreement with proposed treatment plan. DISCHARGE: At this time pt. is stable for d/c to home. Will provide printed patient care instructions, and any necessary prescriptions. Care plan and follow up instructions have been discussed with the patient prior to discharge. Other X-Ray Diagnostic Results Other X-Ray Diagnostic Results : X-Ray ordered: Left Ankle # of Views/Limited Vs Complete: 3 View Indication: Pain EP Interpretation: Yes PA Xray: Interpretation reviewed, by supervising MD, and agrees with findings. Interpretation: no dislocation, no soft tissue swelling, no fractures Impression: No acute disease Electronically Signed by: Karli Alford PA-C Last Vital Signs Date Time Temp Pulse Resp B/P (MAP) Pulse Ox O2 Delivery O2 Flow Rate FiO2 09/04/19 16:44 98.2 74 18 109/67 (81) 98 Room Air Disposition: HOME, SELF-CARE Condition: Stable Scripts Naproxen* (NAPROXEN*) 500 Mg Tablet 500 MG ORAL TWICE A DAY, #20 TAB 0 Refills Prov: Karli Alford 09/04/19 Referrals: NON PHYSICIAN (PCP) Orthopedic Urgent Care Departure Forms: Return to Work Return to Work Date: Sep 05, 2019 Work Restrictions: No Heavy Lifting, No Prolonged Standing, Desk Work 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 Return to Full Activity: Sep 12, 2019 Patient Instructions: Ankle Sprain Additional Instructions: Take medications as directed. Follow up with an D[facility]ER TENDER [facility] in 3-5 days, even if your symptoms have resolved. If symptoms persist MRI may be required at the discretion of your PCP or Ortho Specialist. --Please review list of primary care clinics, if you do not already have a primary care provider who can give you an Orthopedic Referral. Return sooner to ED if new symptoms occur, or current symptoms become worse. - Please note that this Emergency Department Report was dictated using [employer] technology software, occasionally this can lead to erroneous entry secondary to interpretation by the dictation equipment. Karli Alford Sep 04, 2019 17:44
[2019-09-04] MEDS ORDERED: NAPROXEN500 M2 ORAL (18:07)
[2019-09-04 18:14] VITALS: BP 115/79
--- NOTE | 2019-09-05 10:41 | Diagnostic Imaging Report ---
Indication: Left ankle pain Technique: 3 views of the left ankle Comparison: none Findings: No acute fractures. No dislocations. The joint spaces are preserved Impression: Negative
== END 2019-09-04 18:14 | disposition home or self-care (01) ==
LOC: EMR 17:15
DX: S93.402A Sprain of unspecified ligament of left ankle, initial encounter (principal); M25.572 Pain in left ankle and joints of left foot; G89.29 Other chronic pain; W19.XXXA Unspecified fall, initial encounter; Y92.9 Unspecified place or not applicable; Y99.0 Civilian activity done for income or pay; Z88.0 Allergy status to penicillin
CPT/HCPCS: 73610; Z7502; 99283

== ENCOUNTER 2020-06-27 12:15 | Emergency (ER) | payer MEDICAID, OTHER ==
[~2020-06-27] VITALS: Ht 157.5 cm; Wt 66.7 kg
[~2020-06-27 12:15] MED LIST changes: +NAPROXEN500 M2 ORAL
[2020-06-27 12:39] VITALS: BP 102/63
[2020-06-27] MEDS ORDERED: PREDNISONE20 MG ORAL (13:05)
[2020-06-27 13:51] VITALS: BP 100/70
--- NOTE | 2020-06-27 15:24 | Diagnostic Imaging Report ---
Indication: Shortness of breath Technique: One view of the chest Comparison: 03/24/2019 Findings: Lungs and pleural spaces are clear. Heart size is normal. No significant change Impression: No acute process
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
== END 2020-06-27 13:51 | disposition home or self-care (01) ==
LOC: EMR 13:00
DX: J45.901 Unspecified asthma with (acute) exacerbation (principal); M25.512 Pain in left shoulder; Z88.0 Allergy status to penicillin
CPT/HCPCS: 71045; Z7502; 99283

== ENCOUNTER 2020-08-18 10:02 | Emergency (ER) | payer MEDICAID ==
[~2020-08-18] VITALS: Ht 157.5 cm; Wt 52.2 kg
[~2020-08-18 10:02] MED LIST changes: +PREDNISONE20 MG ORAL
[2020-08-18 10:29] VITALS: BP 116/74
--- NOTE | 2020-08-18 10:32 | NUR ---
ED Nurse Note: Patient from home and walked in due to coughing and congestion x 2 days. AAO x4, VSS at this time
--- NOTE | 2020-08-18 10:39 | Emergency Room Report ---
History of Present Illness General Chief Complaint: Upper Respiratory Illness Source: Patient Present Illness HPI Disclaimer: Please note that this report is being documented using [employer] technology. This can lead to erroneous entry secondary to incorrect interpretation by the dictating instrument. HPI: 29-year-old female with history of asthma and recurrent pneumonia presents for evaluation of cough and change in sputum. Reports 2 days of sore throat, nasal congestion, postnasal drip, productive cough. Cough is brown and green-tinged. Denies significant shortness of breath or chest pain. Denies fever or chills. Tested negative for COVID-19 1 month ago but no recent testing. Denies sick exposures or recent travel. 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 COVID-19 Screening: Negative COVID-19 COVID-19 Testing Source: Oral Patient History Last Menstrual Period: 08/10/20 Now: No Nursing Documentation-PMH Past Medical History: No History, Except For Hx Cardiac Problems: No Hx Hypertension: No Hx Pacemaker: No Hx Asthma: Yes Hx Diabetes: No Hx Cancer: No Hx Gastrointestinal Problems: Yes - Gallstones Hx Dialysis: No Hx Neurological Problems: No Hx Cerebrovascular Accident: No Hx Seizures: No Review of Systems All Other Systems: negative except mentioned in HPI Physical Exam Vital Signs Date Time Temp Pulse Resp B/P (MAP) Pulse Ox O2 Delivery O2 Flow Rate FiO2 08/18/20 10:08 98.4 73 17 116/74 (88) 96 Room Air General: Awake and alert, no acute distress HEENT: NC/AT. EOMI. Cardiovascular: RRR. S1 and S2 normal. No murmur appreciated Resp: Normal work of breathing. Cough during exam. No wheezing. Scattered crackles at the bases. Skin: Intact. No abrasions, laceration or rash over the exposed skin MSK: Normal tone and bulk. Moving all extremities. No obvious deformity. Neuro: Awake and alert. Mentating appropriately. Medical Decision Making ER Course 29-year-old female presents for evaluation of cough congestion 2 days duration. Vital signs are within normal limits. Afebrile, saturating 96% on room air. No wheezing to suggest asthma exacerbation. Chest x-ray does not show infiltrates. May be a bronchitis given her history of asthma. Will treat with azithromycin as the patient has recurrent pneumonias. Stable for outpatient follow-up. Discussed reasons to return to the ER. She understands and agrees with treatment plan. Chest X-Ray Diagnostic Results Chest X-Ray Diagnostic Results : Chest X-Ray Ordered: Yes # of Views/Limited/Complete: 1 View Indication: Other - Cough PA Xray: Interpretation reviewed Interpretation: no consolidation, no effusion, no acute cardiopulmonary disease Impression: No acute disease Electronically Signed by: Electronically signed by Dr. Joshua Macias MD Last Vital Signs Date Time Temp Pulse Resp B/P (MAP) Pulse Ox O2 Delivery O2 Flow Rate FiO2 08/18/20 10:29 73 17 Room Air 08/18/20 10:29 98.4 116/74 96 Disposition: HOME, SELF-CARE Condition: Stable Scripts Azithromycin* (ZITHROMAX*) 250 Mg Tablet 250 MG ORAL DAILY, #6 TAB 0 Refills Take two tables once daily for 1 day, then one tablet once daily for 4 days. Prov: Joshua Macias MD 08/18/20 Joshua Macias MD Aug 18, 2020 10:39
[2020-08-18] MEDS ORDERED: ZITHROMAX250 MG ORAL (11:05)
[2020-08-18 11:52] VITALS: BP 116/74
--- NOTE | 2020-08-18 12:50 | Diagnostic Imaging Report ---
Indication: Cough Technique: One view of the chest Comparison: 06/27/2020 Findings: Lungs and pleural spaces are clear. Heart size is normal. No significant change Impression: No acute process
== END 2020-08-18 11:55 | disposition home or self-care (01) ==
LOC: EMR 10:30
DX: R05 Cough (principal); R07.0 Pain in throat; Z88.0 Allergy status to penicillin
CPT/HCPCS: 71045; Z7502; 99283

== ENCOUNTER 2020-10-25 20:23 | Emergency (ER) | payer MEDICAID ==
[~2020-10-25] VITALS: Ht 157.5 cm; Wt 70.3 kg
--- NOTE | 2020-10-25 20:45 | NUR ---
Patient came to ED complaining of left sided pain worse with deep breathing for the past two days. stable
[2020-10-25] MEDS ORDERED: Methocarbamol 750mg tab ORAL ONE (21:15)
--- NOTE | 2020-10-25 21:18 | Emergency Room Report ---
History of Present Illness General Chief Complaint: Rib pain Source: Patient Present Illness HPI Disclaimer: Please note that this report is being documented using [employer] technology. This can lead to erroneous entry secondary to incorrect interpretation by the dictating instrument. HPI: 30-year-old female presents for evaluation of left-sided rib pain. Pain began 2 days ago. 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 She reports pain over the posterior lateral aspect of the left ribs. Exacerbated bending and twisting motion as well as deep inspiration. She states she had a little bit of a cough today but has asthma and has been using her albuterol inhaler more than usual. Denies fever or chills. Denies direct trauma to the chest wall. Denies anterior chest pain or squeezing sensation. Denies shortness of breath. PMH: Asthma PSH: Denied Allergies: Amoxicillin Social Hx: Non-smoker Allergies: Coded Allergies: PENICILLINS (Verified Allergy, Intermediate, 03/24/19) AMOXICILLIN (Verified Allergy, Unknown, 02/23/19) COVID-19 Screening Contact w/high risk pt: No Experienced COVID-19 symptoms?: No COVID-19 Testing performed MANAGER OF PRODUCTION: No Patient History Last Menstrual Period: 10/20/2020 Nursing Documentation-PMH Hx Cardiac Problems: No Hx Hypertension: No Hx Pacemaker: No Hx Asthma: Yes Hx Diabetes: No Hx Cancer: No Hx Gastrointestinal Problems: Yes - Gallstones Hx Dialysis: No Hx Neurological Problems: No Hx Cerebrovascular Accident: No Hx Seizures: No Review of Systems All Other Systems: negative except mentioned in HPI Physical Exam Vital Signs Date Time Temp Pulse Resp B/P (MAP) Pulse Ox O2 Delivery O2 Flow Rate FiO2 10/25/20 20:25 98.1 82 18 127/82 (97) 97 Room Air General: Awake and alert, no acute distress HEENT: NC/AT. EOMI. Chest Wall: Tenderness palpation over the mid scapular line on the left side no palpable deformity or crepitus. Cardiovascular: RRR. S1 and S2 normal. No murmur appreciated Resp: Normal work of breathing. No cough, wheezing or crackles appreciated Skin: Intact. No abrasions, laceration or rash over the exposed skin MSK: Normal tone and bulk. Moving all extremities. No obvious deformity. Neuro: Awake and alert. Mentating appropriately. Medical Decision Making ER Course Is a 30-year-old female presenting for evaluation of left-sided chest wall pain. 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 X-ray was obtained to evaluate for bony injury or possible pneumonia but none was identified and chest x-ray is unremarkable. Treated with lidocaine patch, Robaxin, NSAIDs. Also refilled patient's albuterol inhaler at her request. Stable for outpatient follow-up peer instructed her to return with new or worsening symptoms. She understands and agrees with the treatment plan. Chest X-Ray Diagnostic Results Chest X-Ray Diagnostic Results : Chest X-Ray Ordered: Yes # of Views/Limited/Complete: 1 View Indication: Other - Cough EP Interpretation: Yes Interpretation: no consolidation, no effusion, no pneumothorax, no acute cardiopulmonary disease Impression: No acute disease Last Vital Signs Date Time Temp Pulse Resp B/P (MAP) Pulse Ox O2 Delivery O2 Flow Rate FiO2 10/25/20 20:25 98.1 82 18 127/82 (97) 97 Room Air Disposition: HOME, SELF-CARE Condition: Stable Scripts Albuterol Sulfate (VENTOLIN HFA) 18 Gm Hfa.aer.ad 1 PUFF INH EVERY 6 HOURS, #18 GM 0 Refills Prov: Joshua Macias MD 10/25/20 Ibuprofen* (MOTRIN*) 600 Mg Tablet 600 MG ORAL Q8H PRN for FOR PAIN, #30 TAB 0 Refills Prov: Joshua Macias MD 10/25/20 Methocarbamol* (ROBAXIN-750*) 750 Mg Tablet 750 MG PO TID, #21 TAB 0 Refills Prov: Joshua Macias MD 10/25/20 Lidocaine Patch* (Lidoderm Patch*) 1 Each Adh..patch 1 PATCH TOPIC DAILY, #30 PATCH Patch(es) may remain in place for up to 12 hours in any 24-hour period. Prov: Joshua Macias MD 10/25/20 Referrals: NON PHYSICIAN (PCP) Joshua Macias MD Oct 25, 2020 21:18
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
[2020-10-25] MEDS ORDERED: ROBAXIN-750750 MG PO (21:23)
[2020-10-25] MEDS ORDERED: IBUPROFEN600 M1 ORAL (21:23)
[2020-10-25] MEDS ORDERED: LIDODERM700 M1 TOPIC (21:23)
[2020-10-25 21:24] VITALS: BP 127/82
[2020-10-25] MEDS ORDERED: VENTOLIN HFA18 GM INH (21:26)
--- NOTE | 2020-10-25 21:43 | Diagnostic Imaging Report ---
EXAM: XR Chest, 1 View CLINICAL HISTORY: SOB TECHNIQUE: Frontal view of the chest. COMPARISON: 08/18/2020. FINDINGS: Lungs: The lungs are well aerated. Pleural space: Unremarkable. No pneumothorax. Heart: Cardiomediastinal silhouette unremarkable. Mediastinum: See above. Bones/joints: Ribs are within normal limits. IMPRESSION: No active disease.
--- NOTE | 2020-10-25 22:05 | NUR ---
Pain reassessment note; Patient was d/c at 2130, pt elected to leave prior to pain reassessment.
== END 2020-10-25 21:33 | disposition home or self-care (01) ==
LOC: EMR 20:46
DX: R07.81 Pleurodynia (principal); R05 Cough; J45.909 Unspecified asthma, uncomplicated; Z79.51 Long term (current) use of inhaled steroids; Z88.1 Allergy status to other antibiotic agents; Z88.0 Allergy status to penicillin
CPT/HCPCS: 71045; Z7502; 99283